=== PATIENT | female | born 2000 | race Caucasian/White ===

== ENCOUNTER 2019-05-22 05:06 | Emergency (ER) | payer OTHER, MEDICAID, SELFPAY ==
--- NOTE | 2019-05-22 05:15 | ED_ITS ---
HPI - General Adult General Chief complaint: Urogenital-Female Stated complaint: poss UTI Time Seen by Provider: 05/22/19 05:07 Source: patient Mode of arrival: Ambulatory Limitations: no limitations History of Present Illness HPI narrative: Otherwise healthy 19-year-old female here for evaluation of a couple hours of urinary frequency and urgency and pain. She states she has had urinary tract infections multiple times in the past and this feels like a urinary tract infection. No vomiting. No fevers. Has not tried anything for symptoms prior to arrival. She states that she has been on Keflex in the past w hich seems to have improved her symptoms. Related Data Previous Rx's Medication Instructions Recorded cephalexin [Keflex] 500 mg PO BID 5 Days #10 cap 05/22/19 phenazopyridine [Pyridium] 100 mg PO TID PRN #6 tab 05/22/19 Allergies Allergy/AdvReac Type Severity Reaction Status Date / Time Penicillins [PENICILLINS] Allergy Severe HIVES Unverified 08/19/17 11:49 Review of Systems Constitutional Constitutional: Denies fever(s) Gastrointestinal Gastrointestinal: Denies abdominal pain, Denies nausea and Denies vomiting Genitourinary Genitourinary: Reports urinary frequency, Reports difficulty voiding, Reports dysuria, Reports urinary urgency and Denies vaginal discharge Integumentary/Breasts Skin/Breast: Denies lesions and Denies rash Neurologic Neurologic: Denies behavioral changes Psychiatric Psychiatric: Denies behavioral changes Patient History Medical History Healthy adult (Acute) Social History Smoking Status: Current every day smoker Exam Initial Vital Signs Initial Vital Signs: Vital Signs Temperature 98.9 F 05/22/19 05:16 Pulse Rate 75 05/22/19 05:16 Respiratory Rate 16 05/22/19 05:16 Blood Pressure 140/76 05/22/19 05:16 Pulse Oximetry 98 05/22/19 05:16 Const General: cooperative and healthy appearing Resp Effort & Inspection: normal respiratory effort Cardio Rate: regular rate Skin Rashes: no rashes Extrem General: normal to inspection Course Orders Ordered: ED Orders 05/22/19 05:09 Urine Microscopic Stat Discontinued Medications Cephalexin HCl (Keflex) 500 mg PO NOW ONE Stop: 05/22/19 05:24 Phenazopyridine HCl (Pyridium) 100 mg PO NOW ONE Stop: 05/22/19 05:24 Vital Signs Vital signs: Vital Signs - 8 hr 05/22/19 05:16 Temperature 98.9 F Pulse Rate 75 Respiratory Rate 16 Blood Pressure 140/76 Pulse Oximetry 98 Medical Decision Making Lab Data Lab results reviewed: Yes I reviewed the patient's lab results. Labs: Point of Care Testing Test Results Negative Urine Dip Bedside Urine Glucose Negative Bedside Urine Bilirubin - Negative Bedside Urine Ketone +/- 5 Urine Specific [place] 1.030 Bedside Urine Occult Blood +++ Bedside Urine pH 6.0 Bedside Urine Protein + 30 Bedside Urine Urobilinogen +/- 1mg Bedside Urine Nitrite - Negative Bedside Urine Leukocytes + 70 Esterase Point of care testing: Point of Care Testing Test Results Negative Urine Dip Bedside Urine Glucose Negative Bedside Urine Bilirubin - Negative Bedside Urine Ketone +/- 5 Urine Specific [place] 1.030 Bedside Urine Occult Blood +++ Bedside Urine pH 6.0 Bedside Urine Protein + 30 Bedside Urine Urobilinogen +/- 1mg Bedside Urine Nitrite - Negative Bedside Urine Leukocytes + 70 Esterase MDM Narrative Medical decision making narrative: test negative, urinalysis consistent with UTI given patient's symptoms. Review of medical record does not show any prior urine cultures. Patient states she has been on Keflex in the past and that seems to have helped her symptoms. She was given a dose here and a prescription for the remainder. Was also given Pyridium for symptom control. Urine culture pending at time of discharge. Patient was informed that we would call her if we need to change any antibiotics. Patient was given return prec autions. She expressed understanding and agreement plan. Discharge Plan Departure Patient Disposition: Home Clinical Impression: UTI (urinary tract infection) Instructions: DI for Urinary Tract Infection (UTI) Activity Restrictions/Additional Instructions: Take the antibiotics as directed. Be sure to increase your fluid intake. A urine culture was pending at the time ear discharge. We will call you we need to change any antibiotics based on the results of this. Contact your primary provider for follow-up. Return to the emergency department for any new or worsening symptoms Prescriptions: New cephalexin [Keflex] 500 mg capsule 500 mg PO BID 5 Days Qty: 10 RF: 0 phenazopyridine [Pyridium] 100 mg tablet 100 mg PO TID PRN (Reason: pain) Qty: 6 RF: 0 Referrals: Juanis Allen ARNP [Primary Care Provider] -
[2019-05-22 05:16] VITALS: BP 140/76; PULSE 75; RESP 16; TEMP 37.2; O2SAT 98; BMI 33.3
[2019-05-22 05:23] LABS: RBC Urine 1-5/HPF (0-5/HPF)
[2019-05-22 05:24] LABS: Bacteria Urine Moderate (10-30); Squamous Epithelial Cell Urine 0-1 /HPF (0-5/HPF); WBC Urine 30-100/HPF (0-5/HPF)
[2019-05-22 05:27] LABS: Culture Indicated Urine Specimen Cultured
[2019-05-22] MEDS: PHENAZOPYRIDINE 100 MG TABLET PO (05:31)
[2019-05-22] MEDS: cephALEXin 250 MG CAPSULE 500 MG PO (05:31)
== END 2019-05-22 05:36 | disposition home or self-care (01) ==
PROVIDERS: Emergency Provider Emergency Medicine; PCP Nurse Practitioner Family
DX: N39.0 Urinary tract infection, site not specified (principal)
CPT/HCPCS: 81003; 81015; 81025; 87077; 87086; 87186; 99283

== ENCOUNTER 2020-05-14 15:59 | Emergency (ER) | payer OTHER, MEDICAID, SELFPAY ==
[2020-05-14 16:37] VITALS: BP 133/76; PULSE 72; RESP 16; TEMP 36.6; O2SAT 100; BMI 28.3
[2020-05-14 16:59] LABS: COVID19 -Nasal RAPID Negative (Negative)
--- NOTE | 2020-05-14 18:13 | ED.URI ---
HPI - URI/Sore Throat General Chief Complaint: Upper Respiratory Symptoms Stated Complaint: RUNNY NOSE POSSIBLE COVID EXPOSURE Time Seen by Provider: 05/14/20 18:13 Source: patient Mode of arrival: Ambulatory Limitations: no limitations History of Present Illness HPI Narrative: This is a 20-year-old female who comes to the emergency department with complaint of nasal congestion. Patient states she has had some COVID exposures and she lives with her grandmother so she is concerned about exposing her grandmother. Patient has not had fevers or chills. She has had nasal congestion, mild cough, no chest pain or shortness of breath. No nausea, no vomiting, no diarrhea or constipation. No urinary symptoms. Patient denies any other medical issues. States she is allergic to penicillin. Related Data Previous Rx's Medication Instructions Recorded phenazopyridine [Pyridium] 100 mg PO TID PRN #6 tab 05/22/19 Allergies Allergy/AdvReac Type Severity Reaction Status Date / Time Penicillins [PENICILLINS] Allergy Severe HIVES Unverified 08/19/17 11:49 Review of Systems Review of Systems ROS Unobtainable: All systems reviewed & are unremarkable except as noted in HPI and below Patient History Medical History Healthy adult Social History Smoking Status: Current every day smoker Smoking Status: Current every day smoker tobacco type: cigarettes alcohol intake frequency: 0-2 drinks per day Substance Use Type: marijuana Exam Narrative Exam Narrative: GEN: well nourished, well appearing female, alert and oriented x 3, patient appears to be in mild distress. HEENT: Atraumatic, pupils are equal round reactive to light, extraocular movements are intact. HEART: Regular rate and rhythm without murmur, clicks, rubs. Pulses are equal in upper and lower extremities LUNGS:Lungs clear to auscultation, no wheezes, rales, crackles, chest moves symmetrically ABD:bowel sounds normal, soft, non-tender, no guarding, rebound, rigidity, no masses noted, no hepatosplenomegaly MSCL: Non-tender, no muscle atrophy, muscles strength 5/5 upper and lower extremities, full range of motion, normal gait NEURO:CN 2-12 intact, sensation normal. SKIN: No rash, erythema or other skin changes Initial Vital Signs Initial Vital Signs: Vital Signs Temperature 97.9 F 05/14/20 16:37 Pulse Rate 72 05/14/20 16:37 Respiratory Rate 16 05/14/20 16:37 Blood Pressure 133/76 05/14/20 16:37 Pulse Oximetry 100 05/14/20 16:37 Course Orders Ordered: ED Orders 05/14/20 16:33 COVID19 Stat Vital Signs Vital signs: Vital Signs - 8 hr 05/14/20 16:37 Temperature 97.9 F Pulse Rate 72 Respiratory Rate 16 Blood Pressure 133/76 Pulse Oximetry 100 MDM - URI/Sore Throat Lab Data Attestation: I reviewed the patient's lab results. Labs: Lab Results 05/14/20 Range/Units 16:33 SARS-CoV-2 (PCR) Negative (Negative) Discharge Plan Departure Patient Disposition: Home Clinical Impression: Nasal congestion Instructions: DI for Nasal Congestion Activity Restrictions/Additional Instructions: Follow up with your physician in the next week if you are feeling worse or have any new concerns. Return to the emergency department for fevers, new or worsening shortness of breath, chest pain, lightheadedness or passing out, persistent vomiting, swelling of her extremities or other new or concerning symptoms. Prescriptions: No Action phenazopyridine [Pyridium] 100 mg tablet 100 mg PO TID PRN (Reason: pain) Qty: 6 RF: 0 Referrals: Juanis Allen ARNP [Primary Care Provider] -
[2020-05-14 18:37] VITALS: BP 133/80; PULSE 65; RESP 14; O2SAT 99
== END 2020-05-14 18:38 | disposition home or self-care (01) ==
PROVIDERS: Emergency Provider Emergency Medicine; PCP Nurse Practitioner Family
DX: R09.81 Nasal congestion (principal); R05 Cough; Z20.822 Contact with and (suspected) exposure to COVID-19
CPT/HCPCS: 87635; 99281; 99282; C9803

== ENCOUNTER 2021-03-18 18:29 | Emergency (ER) | payer OTHER, MEDICAID, SELFPAY ==
[2021-03-18 18:38] VITALS: BP 142/83; PULSE 86; RESP 16; TEMP 36.6; O2SAT 96; BMI 29.9
--- NOTE | 2021-03-18 18:49 | ED.WOUNDLAC ---
HPI - Wound/Laceration General Chief Complaint: Wound/Laceration Stated Complaint: LEFT HAND FINGER CUT Time Seen by Provider: 03/18/21 18:32 Source: patient Mode of arrival: Ambulatory History of Present Illness HPI narrative: 20-year-old female daily smoker presents with a chief complaint of a superficial laceration to her left 4th fingerAbout 1 hour prior to arrival. 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 Her tetanus is up-to-date. Her bleeding stopped prior to arrival with appropriate pressure and dressing. She denies any numbness, tingling or weakness. She is otherwise fine and free of complaint Related Data Home Medications Medication Instructions Recorded Confirmed fluoxetine 20 mg capsule 60 mg PO DAILY 03/18/21 03/18/21 Allergies Allergy/AdvReac Type Severity Reaction Status Date / Time Penicillins [PENICILLINS] Allergy Intermediate Hallucinati Verified 03/18/21 18:40 ng Review of Systems Review of Systems Narrative: GENERAL: Denies chills, fatigue, malaise, fever, sweats. HEENT: Denies sinus pain, ear pain, sore throat, difficulty swallowing, dizziness. RESPIRATORY: Denies dyspnea, cough, wheezing, hemoptysis, sputum. CARDIOVASCULAR: Denies chest pain, palpitations, orthopnea, edema, GASTROINTESTINAL: Denies nausea, vomiting, abdominal pain, diarrhea, constipation, melena. : Denies dysuria, frequency, incontinence, hematuria, urinary retention. MUSCULOSKELETAL: denies weakness, joint pain, or bony pain SKIN: See HP NEUROLOGIC: Denies weakness, headache, numbness, change in speech, confusion, seizures, incoordination. PSYCHIATRIC: No concerning psychosocial issues. 12 point review of systems is negative except for those stated above Patient History Medical History Healthy adult Social History Smoking Status: Current every day smoker Smoking Status: Current every day smoker tobacco type: cigarettes alcohol intake frequency: a few times a week Substance Use Type: marijuana Exam Narrative Exam Narrative: GEN: AOx3 and in mild distress EYES: Pupils are equal, round, and reactive to light and accommodation. Extraoccular muscles are intact bilaterally. There is no subconjunctival hemorrhage or exudate. CHEST: Lungs are clear to auscultation bilaterally and free of wheezes, rales, or rhonchi. Heart rate is regular rhythm, there are no murmurs, clicks, rubs, or gallops. There is no chest wall tenderness. ABD: Abdomen is soft and nontender. There is no guarding or rebound. Bowel sounds are normal in all 4 quadrants. There is no mass or organomegaly. EXT: Superficial avulsion type laceration with skin flap intact the tip of left 4th finger, 0.25 x 0.5 cm. Bleeding is controlled with pressure and her dressing. No involvement of the nail bed, nail or nail fold. Painless ROM of all extremities with no loss of sensation or strength. SKIN: Warm, pink, and dry. No erythema or rash Initial Vital Signs Initial Vital Signs: Vital Signs Temperature 97.9 F 03/18/21 18:38 Pulse Rate 86 03/18/21 18:38 Respiratory Rate 16 03/18/21 18:38 Blood Pressure 142/83 H 03/18/21 18:38 Pulse Oximetry 96 03/18/21 18:38 Course Orders Ordered: Discontinued Medications Diphtheria/Tetanus/Acell Pertussis (Tet,Diph,Pertuss(Acell),Vac/Pf 0.5 Ml Syringe) 0.5 ml IM .ONCE ONE Stop: 03/18/21 18:43 Last Admin: 03/18/21 18:57 Dose: 0.5 ml Documented by: BARTOLOME Vital Signs Vital signs: Vital Signs - 8 hr 03/18/21 18:38 Temperature 97.9 F Pulse Rate 86 Respiratory Rate 16 Blood Pressure 142/83 H Pulse Oximetry 96 Discharge Plan Departure Patient Disposition: Home Clinical Impression: Avulsion of skin Instructions: How to Care for a Laceration After Repair Activity Restrictions/Additional Instructions: *You have been diagnosed with [minor, superficial avulsion type laceration to tip of finger which does not require suture or antibiotics as we discussed. *What to do: *Please continue to take your regular medications as directed. [ ] New medication prescriptions sent to your pharmacy: [ ] [ ] New medication written as a paper prescription [x ] No new medications given *Please follow up with your primary care provider in 2-3 days, call for an appointment. Let them know you were seen in the Emergency Department and that we ask that you be seen in follow up. We will electronically transmit a record of today's note if your PCP is in our system *If you do not have a primary care provider please contact the [facility] Resource line at [phone]. They will ask some questions about your medical history and help get you set up with a doctor in the community. *Return to Emergency Department if you should have any new, worsening or concerning symptoms, such as [fever greater than 101 F, shaking chills, worsening pain, persistent vomiting or other bothersome symptoms] Prescriptions: No Action fluoxetine 20 mg capsule 60 mg PO DAILY RF: 0 Referrals: Juanis Allen ARNP [Primary Care Provider] -
[2021-03-18] MEDS: TET,DIPH,PERTUSS(ACELL),VAC/PF 0.5 ML SYRINGE IM (18:57)
== END 2021-03-18 19:09 | disposition home or self-care (01) ==
PROVIDERS: Emergency Provider Emergency Medicine; PCP Nurse Practitioner Family
DX: S61.205A Unspecified open wound of left ring finger without damage to nail, initial encounter (principal); W26.9XXA Contact with unspecified sharp object(s), initial encounter; Z23 Encounter for immunization
CPT/HCPCS: 90471; 99283; 90715

== ENCOUNTER → 2024-11-16 14:13 | Outpatient (CLI) | payer OTHER, SELFPAY | PROVIDERS: PCP Nurse Practitioner Family; Visit Provider Physician Assistant Medical | DX: J02.9 Acute pharyngitis, unspecified (principal) | CPT/HCPCS: 87070; 87077; 87147 ==